=== PATIENT | female | born 1985 | race Caucasian/White ===

== ENCOUNTER → 2020-05-04 | Outpatient (CLI) | payer MEDICAID ==
--- NOTE | 2020-05-04 12:33 | RAD ---
EXAM: Abdomen sonogram. HISTORY: Pain. TECHNIQUE: Sonographic imaging of the abdomen was performed. COMPARISON: None. FINDINGS: The liver is normal in size. No focal hepatic lesion is seen. The common bile duct is audrey l in caliber. The gallbladder is unremarkable. The kidneys are normal in size. There is no hydronephr osis or solid or cystic renal lesion. The spleen, pancreas, aorta and inferior vena cava are unremark able. IMPRESSION: Unremarkable abdomen sonogram. Electronically signed by: Yolanda Baeza MD (05/04/2020 12:30 PM) [id number]
== END ==
LOC: US 09:29
PROVIDERS: ATTEND Nurse Practitioner Gerontology
DX: R10.13 Epigastric pain (principal)
CPT/HCPCS: 76700